=== PATIENT | male | born 1950 | race African-American/Black ===

== ENCOUNTER 2017-06-16 07:43 | Emergency (ER) | payer OTHER, MEDICAID ==
[~2017-06-16] VITALS: Ht 170.2 cm; Wt 81.5 kg
[2017-06-16 07:52] VITALS: BP 138/93
== END 2017-06-16 13:34 | disposition left against medical advice (07) ==
LOC: ER 09:11
DX: R05 Cough (principal); R55 Syncope and collapse; I10 Essential (primary) hypertension; E78.00 Pure hypercholesterolemia, unspecified; E11.9 Type 2 diabetes mellitus without complications; F17.200 Nicotine dependence, unspecified, uncomplicated
CPT/HCPCS: 99283